=== PATIENT | male | born 1980 ===

== ENCOUNTER 2020-02-06 17:18 | Emergency (ER) | payer OTHER ==
[2020-02-06] MEDS ORDERED: Iopamidol 612 MG/ML 100 ML Bottle ONE (17:41)
[2020-02-06 17:49] LABS: CHLORIDE,CL 101 mmol/L (98-107); SODIUM,NA 137 mmol/L (136-145)
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
[2020-02-06] MEDS ORDERED: Ondansetron 4 MG/2 ML SDV IVPUSH ONE (19:21)
[2020-02-06] MEDS ORDERED: Morphine 4 MG/ML Syringe IVPUSH ONE (19:21)
== END 2020-02-06 19:28 ==
LOC: LL.ED 17:18
DX: S70.12XA Contusion of left thigh, initial encounter (principal); S00.411A Abrasion of right ear, initial encounter; R10.11 Right upper quadrant pain; R07.9 Chest pain, unspecified; V68.5XXA Driver of heavy transport vehicle injured in noncollision transport accident in traffic accident, initial encounter
CPT/HCPCS: 36415; 70450; 71045; 71260; 72125; 72170; 74177; 80053; 85025; 96374; 96375; 99283; 99285-25; J2270; J2405; Q9967